=== PATIENT | male | born 1950 | race Caucasian/White ===

== ENCOUNTER 2024-06-23 06:33 | Day surgery (SDC) | payer MEDICARE ==
[2024-06-23] VITALS (10 sets, daily range): BP systolic 100–132; BP diastolic 76–89
[~2024-06-23] VITALS: Ht 185.4 cm; Wt 78.0 kg
[~2024-06-23 06:33] MED LIST: ATOR40TA PO; Aspir 8181 MG PO; Lisinopril-Hct1 EAC4 PO; METO25ER PO
[2024-06-23] MEDS ORDERED: NS 250 ML IV ONE (06:43)
[2024-06-23] MEDS ORDERED: NS 1,000 ML IV ONE ×2 (06:43→07:16)
[2024-06-23] MEDS ORDERED: Heparin Sodium 1000 Units/ML 10ML MDV ONE ×2 (06:43→07:16)
[2024-06-23] MEDS ORDERED: NS 100 ML IV ONE (06:43)
[2024-06-23 07:26] LABS: BASOPHILS ABSOLUTE AUTO 0.06 K/mm3 (0.00-0.23); BASOPHILS PERCENT AUTO 1 % (0-2); EOSINOPHILS ABSOLUTE AUTO 0.18 K/mm3 (0.00-0.68); EOSINOPHILS PERCENT AUTO 3 % (0-6); Hematocrit 42.4 % (37.0-53.0); Hemoglobin 14.5 g/dL (13.5-17.5); IMMATURE GRAN ABSOLUTE AUTO 0.02 K/mm3 (0.00-0.10); IMMATURE GRAN PERCENT AUTO 0 % (0-1); LYMPHOCYTES ABSOLUTE AUTO 2.02 K/mm3 (0.84-5.20); LYMPHOCYTES PERCENT AUTO 28 % (21-46); MONOCYTES ABSOLUTE AUTO 1.37 K/mm3 (0.16-1.47); MONOCYTES PERCENT AUTO 19 % (4-13); Mean Corpuscular HGB 33.6 pg (26.0-34.0); Mean Corpuscular HGB Conc 34.2 g/dL (31.5-36.5); Mean Corpuscular Volume 98 fL (80-100); Mean Platelet Volume 10.4 fL (9.1-12.4); NEUTROPHILS ABSOLUTE AUTO 3.63 K/mm3 (1.96-9.15); NEUTROPHILS PERCENT AUTO 50 % (41-73); Platelet Count 169 K/mm3 (150-400); RDW Coefficient Variation 11.9 % (11.7-14.2); RDW Standard Deviation 43.1 fL (35.1-46.3); Red Blood Cell Count 4.31 M/mm3 (4.30-5.90); White Blood Cell Count 7.28 K/mm3 (4.00-11.30)
[2024-06-23 07:29] LABS: Bun/Creatinine Ratio 29.3 (12.0-20.0); Calcium, Blood 9.5 mg/dL (8.5-10.1); Creatinine, Blood 1.16 mg/dL (0.60-1.20); Potassium, Blood 4.1 mmol/L (3.5-5.5)
[2024-06-23 07:34] LABS: International Normalized Ratio 1.01; Prothrombin Time Results 10.8 Sec (9.7-11.5)
[2024-06-23] MEDS ORDERED: Midazolam HCl 1MG / ML 2ML Vial ONE ×3 (07:46→09:39)
[2024-06-23] MEDS ORDERED: FentaNYL Citrate 50 MCG/ML 2 ML Injection ONE ×2 (07:46→08:53)
[2024-06-23] MEDS ORDERED: Protamine Sulfate 50 MG Amp ONE (10:25)
[2024-06-23] MEDS ORDERED: Clopidogrel Bisulfate 300 MG Cap ONE (10:35)
[2024-06-23] MEDS ORDERED: Mag Hydrox/AL Hydrox/Simeth 30 ML UDC ONE (10:35)
[2024-06-23] MEDS ORDERED: CLOP75 PO (11:46)
[2024-06-23] MEDS ORDERED: Lidocaine 2%-Epineph 1:100000 20 ML MDV ONE (12:34)
--- NOTE | 2024-06-23 12:48 | NUR ---
DR JOHNSON IN ROOM DISCUSSING PLAN OF CARE. PT WITH BILATERAL GROIN SITE. R SIDE, HEMATOMA NOTED. DR JOHNSON REDRESSED AFTER LIDO WITH EPI INJECTED. PT TOLERATES WELL. BILATERAL SITES SOFT AND NON-TENDER. NO BLEEDING OR HEMATOMA NOTED. VSS. NADN. PT RESTING COMFORTBALY WITH CALL LIGHT WITHIN REACH.
== END 2024-06-23 14:15 | disposition home or self-care (01) ==
LOC: MHTC 06:33
PROVIDERS: Student in an Organized Health Care Education/Training Program
DX: I70.213 Atherosclerosis of native arteries of extremities with intermittent claudication, bilateral legs (principal); I10 Essential (primary) hypertension; E78.5 Hyperlipidemia, unspecified; I11.0 Hypertensive heart disease with heart failure; I50.9 Heart failure, unspecified; Z87.891 Personal history of nicotine dependence; Z79.82 Long term (current) use of aspirin; Z79.899 Other long term (current) drug therapy; Z88.5 Allergy status to narcotic agent; Z91.040 Latex allergy status; Z88.8 Allergy status to other drugs, medicaments and biological substances
CPT/HCPCS: 36200; 37221; 37252; 75625; 75716; 76937; 80048; 85025; 85347; 85610; 99152; 99153; A9270; C1725; C1753; C1760; C1769; C1874; C1887; C1894; J1644; J2250; J2720; J3010; J7030; J7050; Q9967

== ENCOUNTER 2024-07-07 06:10 | Day surgery (SDC) | payer MEDICARE ==
[2024-07-07] VITALS (9 sets, daily range): BP systolic 112–149; BP diastolic 85–108
[~2024-07-07] VITALS: Ht 185.4 cm; Wt 78.0 kg
[~2024-07-07 06:10] MED LIST changes: +CLOP75 PO
[2024-07-07 06:54] LABS: BASOPHILS ABSOLUTE AUTO 0.04 K/mm3 (0.00-0.23); BASOPHILS PERCENT AUTO 1 % (0-2); EOSINOPHILS ABSOLUTE AUTO 0.19 K/mm3 (0.00-0.68); EOSINOPHILS PERCENT AUTO 3 % (0-6); Hematocrit 35.3 % (37.0-53.0); Hemoglobin 12.3 g/dL (13.5-17.5); IMMATURE GRAN ABSOLUTE AUTO 0.02 K/mm3 (0.00-0.10); IMMATURE GRAN PERCENT AUTO 0 % (0-1); LYMPHOCYTES ABSOLUTE AUTO 1.29 K/mm3 (0.84-5.20); LYMPHOCYTES PERCENT AUTO 21 % (21-46); MONOCYTES ABSOLUTE AUTO 0.66 K/mm3 (0.16-1.47); MONOCYTES PERCENT AUTO 11 % (4-13); Mean Corpuscular HGB 34.8 pg (26.0-34.0); Mean Corpuscular HGB Conc 34.8 g/dL (31.5-36.5); Mean Corpuscular Volume 100 fL (80-100); Mean Platelet Volume 9.9 fL (9.1-12.4); NEUTROPHILS ABSOLUTE AUTO 3.82 K/mm3 (1.96-9.15); NEUTROPHILS PERCENT AUTO 63 % (41-73); Platelet Count 196 K/mm3 (150-400); RDW Standard Deviation 47.1 fL (35.1-46.3); Red Blood Cell Count 3.53 M/mm3 (4.30-5.90); White Blood Cell Count 6.02 K/mm3 (4.00-11.30)
[2024-07-07 07:01] LABS: International Normalized Ratio 1.02; Prothrombin Time Results 10.9 Sec (9.7-11.5)
[2024-07-07 07:07] LABS: Bun/Creatinine Ratio 25.1 (12.0-20.0); Calcium, Blood 8.7 mg/dL (8.5-10.1); Creatinine, Blood 0.76 mg/dL (0.60-1.20); Potassium, Blood 4.1 mmol/L (3.5-5.5)
[2024-07-07] MEDS ORDERED: NS 500 ML IV ONE (07:11)
[2024-07-07] MEDS ORDERED: Heparin Sodium 1000 Units/ML 10ML MDV ONE (07:12)
[2024-07-07] MEDS ORDERED: Nitroglycerin 2 MG/20 ML BTL ONE (07:12)
[2024-07-07] MEDS ORDERED: NS 1,000 ML IV ONE ×2 (07:12→07:51)
[2024-07-07] MEDS ORDERED: Midazolam HCl 1MG / ML 2ML Vial ONE (07:50)
[2024-07-07] MEDS ORDERED: FentaNYL Citrate 50 MCG/ML 2 ML Injection ONE (07:51)
[2024-07-07] MEDS ORDERED: Lidocaine 2%-Epineph 1:100000 20 ML MDV ONE (09:33)
--- NOTE | 2024-07-07 10:00 | NUR ---
PATIENT ARRIVED TO RECOVERY ROOM, HOB FLAT. R GROIN SITE WITH PERCLOSE DEVICE IN PLACE. SITE C/D/I SOFT/NONTENDER, NO EVIDENCE OF BLEEDING. VSS ON RA. R DISTAL PULSES PRESENT. PATIENT CONVERSING APPROPRIATELY.
--- NOTE | 2024-07-07 10:30 | NUR ---
PATIENTS HOB ELEVATED 30 DEGREES. R GROIN SITE C/D/I SOFT/NONTENDER, NO EVIDENCE OF BLEEDING. VSS ON RA
--- NOTE | 2024-07-07 11:37 | NUR ---
DISCHARGE INSTRUCTIONS REVIEWED WITH PATIENT AND SPOUSE. ALL QUESTIONS WERE ANSWERED. R GROIN SITE C/D/I SOFT/NONTENDER, NO EVIDENCE OF BLEEDING. VSS ON RA
--- NOTE | 2024-07-07 11:53 | NUR ---
PATIENT STANDING AND GETTING DRESSED WITHOUT DIFFICULTY. R GROIN SITE C/D/I SOFT/NONTENDER, NO EVIDENCE OF BLEEDING. VSS ON RA.
--- NOTE | 2024-07-07 12:00 | NUR ---
PATIENT DISCHARGED HOME AT THIS TIME. PIV REMOVED WITHOUT DIFFICULTY, CATHETER INTACT. R GROIN SITE C/D/I SOFT/NONTENDER, NO EVIDENCE OF BLEEDING. VSS ON RA. ALL PATIENT BELONGINGS AND PAPERWORK LEFT WITH PATIENT. PATIENT WHEELED TO HOSPITAL ENTRANCE AND PATIENT SPOUSE ABLE TO PROVIDE TRANSPORTATION HOME.
== END 2024-07-07 12:00 | disposition home or self-care (01) ==
LOC: MHTC 06:10
PROVIDERS: Student in an Organized Health Care Education/Training Program
DX: I73.9 Peripheral vascular disease, unspecified (principal); I25.5 Ischemic cardiomyopathy; E78.5 Hyperlipidemia, unspecified; I11.0 Hypertensive heart disease with heart failure; I50.9 Heart failure, unspecified; Z87.891 Personal history of nicotine dependence; Z79.82 Long term (current) use of aspirin; Z79.899 Other long term (current) drug therapy; Z91.040 Latex allergy status; Z88.5 Allergy status to narcotic agent; Z88.8 Allergy status to other drugs, medicaments and biological substances
CPT/HCPCS: 76937; 80048; 85025; 85610; 99152; 99153; C1725; C1753; C1760; C1769; C1887; C1894; C2623; J1644; J2250; J3010; J7030; J7050; Q9967

== ENCOUNTER 2024-07-22 06:25 | Day surgery (SDC) | payer MEDICARE ==
[~2024-07-22] VITALS: Ht 185.4 cm; Wt 78.0 kg
[2024-07-22 06:55] VITALS: BP 154/99
[2024-07-22 06:56] VITALS: BP 160/78
[2024-07-22] MEDS ORDERED: Heparin Sodium 1000 Units/ML 10ML MDV ONE ×2 (07:15→07:26)
[2024-07-22] MEDS ORDERED: NS 1,000 ML IV ONE ×2 (07:15→07:26)
[2024-07-22] MEDS ORDERED: NS 500 ML IV ONE (07:15)
[2024-07-22 07:35] LABS: BASOPHILS ABSOLUTE AUTO 0.05 K/mm3 (0.00-0.23); BASOPHILS PERCENT AUTO 1 % (0-2); EOSINOPHILS ABSOLUTE AUTO 0.15 K/mm3 (0.00-0.68); EOSINOPHILS PERCENT AUTO 3 % (0-6); Hematocrit 37.6 % (37.0-53.0); Hemoglobin 13.1 g/dL (13.5-17.5); IMMATURE GRAN ABSOLUTE AUTO 0.02 K/mm3 (0.00-0.10); IMMATURE GRAN PERCENT AUTO 0 % (0-1); LYMPHOCYTES ABSOLUTE AUTO 1.12 K/mm3 (0.84-5.20); LYMPHOCYTES PERCENT AUTO 19 % (21-46); MONOCYTES ABSOLUTE AUTO 0.86 K/mm3 (0.16-1.47); MONOCYTES PERCENT AUTO 15 % (4-13); Mean Corpuscular HGB 34.9 pg (26.0-34.0); Mean Corpuscular HGB Conc 34.8 g/dL (31.5-36.5); Mean Corpuscular Volume 100 fL (80-100); Mean Platelet Volume 9.8 fL (9.1-12.4); NEUTROPHILS ABSOLUTE AUTO 3.58 K/mm3 (1.96-9.15); NEUTROPHILS PERCENT AUTO 62 % (41-73); Platelet Count 187 K/mm3 (150-400); RDW Coefficient Variation 12.9 % (11.7-14.2); RDW Standard Deviation 47.9 fL (35.1-46.3); Red Blood Cell Count 3.75 M/mm3 (4.30-5.90); White Blood Cell Count 5.78 K/mm3 (4.00-11.30)
[2024-07-22 07:44] LABS: Bun/Creatinine Ratio 20.5 (12.0-20.0); Creatinine, Blood 0.88 mg/dL (0.60-1.20); Potassium, Blood 4.2 mmol/L (3.5-5.5)
[2024-07-22] MEDS ORDERED: Midazolam HCl 1MG / ML 2ML Vial ONE (07:52)
[2024-07-22] MEDS ORDERED: FentaNYL Citrate 50 MCG/ML 2 ML Injection ONE (07:53)
[2024-07-22] MEDS ORDERED: Verapamil HCL 2.5 MG/ML 2ML Injection ONE (08:21)
[2024-07-22] MEDS ORDERED: Nitroglycerin 2 MG/20 ML BTL ONE (08:22)
[2024-07-22 09:52] VITALS: BP 150/89
--- NOTE | 2024-07-22 11:04 | NUR ---
PT VERBALIZED UNDERSTANDING OF WRITTEN AND VERBAL D/C INST. PT AMB TO THE BATHROOM /C SBA. TOLERATED WELL. NEG BLEEDING OR SWELLING L FOOT. IV REMOVED. PT TAKEN OUT OF THE HRT CENTER VIA W/C.
== END 2024-07-22 11:30 | disposition home or self-care (01) ==
LOC: MHTC 06:25 → EDSTATUS 06:30 → MHTC 06:30
PROVIDERS: Student in an Organized Health Care Education/Training Program
DX: I70.202 Unspecified atherosclerosis of native arteries of extremities, left leg (principal); R91.1 Solitary pulmonary nodule; E78.5 Hyperlipidemia, unspecified; I11.0 Hypertensive heart disease with heart failure; I50.9 Heart failure, unspecified; Z79.82 Long term (current) use of aspirin; Z79.899 Other long term (current) drug therapy; Z87.891 Personal history of nicotine dependence; Z88.5 Allergy status to narcotic agent; Z88.8 Allergy status to other drugs, medicaments and biological substances; Z91.040 Latex allergy status
CPT/HCPCS: 37252; 75710; 76937; 80048; 85025; 99152; 99153; C1725; C1753; C1769; C1887; C1894; C9764; J1644; J2250; J3010; J7030; J7050; Q9967